=== PATIENT | male | born 1960 | race Caucasian/White ===

== ENCOUNTER 2019-07-26 07:55 | Inpatient (IN) ==
--- NOTE | 2019-07-12 16:26 | PAT Medication Instructions ---
Medication Instructions Date of Service July 12, 2019 Home Medications folic acid 1 mg PO QPM hydrochlorothiazide 12.5 mg PO QPM levothyroxine 75 mcg PO QAM methotrexate sodium 15 mg PO WK naproxen sodium [Aleve] 440 mg PO Q8H PRN triamcinolone acetonide 1 applic TOPICAL TID PRN ASK your surgeon for instructions naproxen sodium [Aleve] 440 mg PO Q8H PRN ASK your prescriber and surgeon methotrexate sodium 15 mg PO WK STOP taking 24 hours before surgery triamcinolone acetonide 1 applic TOPICAL TID PRN Take morning of surgery levothyroxine 75 mcg PO QAM Take evening before surgery folic acid 1 mg PO QPM hydrochlorothiazide 12.5 mg PO QPM Other Notes If you have any questions please call us at [phone] or [phone] or [phone] or [phone]
--- NOTE | 2019-07-13 11:54 | Anesthesiology Consultation ---
Date of Service July 13, 2019 Assessment & Plan (1) Encounter for pre-operative examination: Chart Review Chart Review: Acceptable Risk for Surgery (pending review of preop testing (labs, EKG, CXR)) and Patient seen in Pre Admission Testing Teaching & Discussion Pre-Anesthesia Teaching/Discussion Notes: Instructed NPO after midnight before surgery,except medications with 15 cc of water. Medication instructions provided according to the PAT guidelines. History Surgery Operation Date: 07/26/19 07:30 Proposed Procedures p Robotic Assisted Laparoscopic Radical Retropubic Prostatectomy, Possible Open, Possible Pelvic Lymph Node Dissection, Possible Suprapubic Tube Placement - Glenn Graham MD Height/Weight Height: 5 ft 7 in Weight: 62.5 kg Allergies Allergy/AdvReac Type Severity Reaction Status Date / Time No Known Allergies Allergy Verified 07/13/19 10:27 Medications Home Medications Medication Instructions Recorded Confirmed Last Taken folic acid 1 mg PO QPM 07/06/19 07/13/19 Unknown hydrochlorothiazide 12.5 mg PO QPM 07/06/19 07/13/19 Unknown levothyroxine 75 mcg PO QAM 07/06/19 07/13/19 Unknown methotrexate sodium 15 mg PO WK 07/06/19 07/13/19 Unknown naproxen sodium [Aleve] 440 mg PO Q8H PRN 07/06/19 07/13/19 Unknown triamcinolone acetonide 1 applic TOPICAL TID PRN 07/06/19 07/13/19 Unknown Past Medical History Medical History Cancer prostate Gout Hypothyroidism Scleroderma issues with stiffness with arms/hands (PCP monitoring) Exercise / Class Metabolic Activity II 4-5 Yardwork/Stairs/Walk up hill Past Family History Family History Mother Family history of diabetes mellitus Past Surgical History Surgical History History of knee surgery RIGHT S/P INJURY (1970'S) Past Anesthesia History No Hx of Anesthesia Complications and No Family Hx of Anesthesia Complications History of PONV No Hx of PONV and No Hx of Motion Sickness Social History Smoking Status: Light tobacco smoker tobacco type: cigars and smokeless tobacco Smoking cigarettes per day: occasional cigar Do You Dip or Chew Tobacco: Yes (1/3- 1/4 cans/day- advised NPO AM DOS) Hx Alcohol Use: Yes Alcohol type: hard liquor alcohol intake frequency: a few times a week Hx Substance Use: Yes substance use type: marijuana Last Used Substance Other:: inhaled marijuana (no card) 2-3x day Review of Systems Patient denies chest pain, shortness of breath, dyspnea on exertion, reflux, cough, wheezing, palpitations. Physical Exam Vital Signs VITALS BP 146/84 P 71 TEMP 98.7 SP02 95%RA RESP 18 PHYSICAL Full neck and c-spine range of motion. Full TMJ range of motion. TMD 3 finger breaths Mallampati Score 2 Dentition: poor dentition, rotted, upper front missing Lungs: clear throughout to auscultation Cardiac: regular rate and rhythm, no murmurs noted Spine: normal Carotid arteries: negative bruit Extremities: no edema Large tran- advised patient recommendation to trim prior to surgery. Patient refused but agreeable to "clean up" area surrounding face. Advised patient potential for cancellation AM DOS depending on anesthesiologist evaluation/decision. He states he will leave decision up to anesthesiologist AM DOS with whether or not he needs to trim/cut tran. Testing Echocardiogram Date: 01/19/17 EF 55-60%. Grade I DD. No significant valvular disease.
--- NOTE | 2019-07-13 12:59 | XRay Report ---
XR chest Pre-admission PA/Lat CLINICAL HISTORY: pat COMPARISON STUDY: No previous studies for comparison. FINDINGS: The bones soft tissues and hemidiaphragms are normal. The cardiomediastinal silhouette is n ormal. The lungs are clear. The pulmonary vasculature is normal. IMPRESSION: Negative chest. The above report was generated using voice recognition software. It may contain grammatical, syntax or spelling errors. Electronically signed by: Cody Wilkes M.D. 07/13/2019 12:58 PM
[2019-07-13 13:12] LABS: Appearance Urine Clear (Clear); Bilirubin Urine Negative (Negative); Blood Urine Negative (Negative); Color Urine Yellow; Glucose Urine UA Negative (Negative); Ketones Urine Negative (Negative); Leukocyte Esterase Urine Negative (Negative); Nitrite Urine Negative (Negative); Protein Urine Negative (Negative); Specific Gravity Urine 1.015 (1.000-1.030); Urobilinogen Urine Negative (Negative)
[2019-07-13 13:12] LABS: Basophils # (auto) 0.03 K/uL (0-0.2); Basophils % (auto) 0.3 %; Eosinophils # (auto) 0.13 K/uL (0-0.5); Eosinophils % (auto) 1.2 %; Hematocrit (blood only) 40.6 % (42-52); Hemoglobin 13.7 g/dL (14.0-18.0); Immature Granulocytes # (auto) 0.04 K/uL (0.00-0.02); Immature Granulocytes % (auto) 0.4 %; Lymphocytes # (auto) 1.61 K/uL (1.2-3.4); Lymphocytes % (auto) 15.1 %; Mean Corpuscular Hemoglobin 31.3 pg (25-34); Mean Corpuscular Hgb Conc 33.7 g/dL (32-36); Mean Corpuscular Volume 92.7 fL (80-100); Mean Platelet Volume 10.9 fL (7.4-10.4); Monocytes # (auto) 1.02 K/uL (0.11-0.59); Monocytes % (auto) 9.6 %; Neutrophils # (auto) 7.85 K/uL (1.4-6.5); Neutrophils % (auto) 73.4 %; Platelet Count 272 K/uL (130-400); RDW Coefficient of Variation 15.6 % (11.5-14.5); RDW Standard Deviation 52.5 fL (36.4-46.3); Red Blood Count 4.38 M/uL (4.7-6.1); White Blood Count 10.68 K/uL (4.8-10.8)
[2019-07-13 13:21] LABS: BUN Creatinine Ratio 19.3 (10-20); Calcium 8.7 mg/dl (8.5-10.1); Creatinine Clr Calc Pharmacy 90.1 ml/min; Est GFR (African American) 114.7
[~2019-07-26 07:55] MED LIST: CEFAZOLIN 2000MG 2,000 MG/15 ML SYR IV SCH; HEPARIN SOD 5,000 UNIT/0.5 ML VIAL SQ SCH; LR 15ML/HR IV SCH
[2019-07-26] MEDS ORDERED: MIDAZOLAM HCL 1 MG/ML 2ML VIAL ONE (08:54)
[2019-07-26] MEDS ORDERED: fentaNYL citrate 100 MCG/2 ML VIAL ONE (08:55)
[2019-07-26] MEDS ORDERED: ROCURONIUM BROMIDE 10 MG/ML 5 ML VIAL ONE ×2 (08:56→11:29)
[2019-07-26] MEDS ORDERED: GLYCOPYRROLATE 0.2 MG/ML VIAL ONE (08:56)
[2019-07-26] MEDS ORDERED: PROPOFOL IV EMULSION 10 MG/ML 20 ML VIAL IV ONE (08:56)
[2019-07-26] MEDS ORDERED: LARYING-O-JET KIT (LTA) ONE (08:56)
[2019-07-26] MEDS ORDERED: LIDOCAINE HCL 2% 2 ML VIAL/AMP(20MG/ML) INFIL ONE (08:56)
[2019-07-26] MEDS ORDERED: HYDROmorphone INJ 2 MG/ML SYR/VIAL IV PRN (09:03)
[2019-07-26] MEDS ORDERED: ePHEDrine sulfate 50 MG/ML AMP IV PRN (09:03)
[2019-07-26] MEDS ORDERED: ATROPINE SULFATE 0.1 MG/ML 10ML SYR IV PRN (09:03)
--- NOTE | 2019-07-26 09:16 | History & Physical Bridge Note ---
Date of Service July 26, 2019 History & Physical Bridge Note I have examined the patient, reviewed the History & Physical and in the interval since the performance of the History & Physical I have noted the following changes of clinical significance: no changes noted
[2019-07-26] MEDS ORDERED: BUPIVACAINE 0.5 % 5 MG/1 ML MPF 30ML VIAL ONE (09:25)
[2019-07-26] MEDS ORDERED: BELLADONNA/OPIUM SUPP 60 MG SUPP PR PRN (10:32)
[2019-07-26] MEDS ORDERED: BELLADONNA/OPIUM SUPP 60 MG SUPP PR ONE (10:41)
[2019-07-26] MEDS ORDERED: ePHEDrine sulfate 50 MG/ML SYR ONE (11:20)
[2019-07-26] MEDS ORDERED: PHENYLEPHRINE 100MCG/ML 5ML SYR ONE (11:20)
[2019-07-26] MEDS ORDERED: HYDROmorphone INJ 2 MG/ML SYR/VIAL ONE (11:20)
[2019-07-26] MEDS ORDERED: ONDANSETRON INJ 2 MG/ML 2 ML VIAL ONE (11:20)
[2019-07-26] MEDS ORDERED: DEXAMETHASONE SOD INJ 4 MG/ML VIAL ONE (11:20)
[2019-07-26] MEDS ORDERED: NEOSTIGMINE METHYLSULFATE 5 MG/5 ML SYR ONE (11:20)
[2019-07-26] MEDS ORDERED: FLOSEAL HEMOSTATIC MATRIX 10ML TOP ONE (13:13)
[2019-07-26] MEDS ORDERED: LABETALOL HCL IV 5 MG/ML 20ML IV ONE (13:13)
--- NOTE | 2019-07-26 14:15 | Operative Report ---
Post Operative Report Pre & Post Diagnosis Operation Date: 07/26/19 09:35 Pre-Op Diagnosis: Prostate Cancer Post-Op Diagnosis: Prostate Cancer Procedure Operation Date: 07/26/19 09:35 Actual Procedures p Robotic Assisted Laparoscopic Radical Retropubic Prostatectomy with bilateral pelvic lymph node dissection(Not Applicable) - Glenn Graham MD Surgeon Carroll Graham MD Petrology Teacher Dorita Claudio Estimated Blood Loss 75 Findings Consistent with Post-Op Diagnosis Specimens 1. periprostatic fat 2. left pelvic lymph nodes 3. right pelvic lymph nodes 4. prostate and seminal vesicles Description of Procedure The patient was identified in the preoperative holding area, appropriate informed consents were reviewed and completed, and he was transported to the operating suite. Subcutaneous heparin was administered in the pre-operative holding area. Upon arrival in the operating suite, he received appropriate antibiotics and general anesthesia. He was positioned in dorsal lithotomy, a B&O suppository was inserted after digital rectal exam, and he was prepped and draped in standard fashion. A Steve catheter was inserted in the sterile field. A Veress needle was passed per umbilicus with uniform insufflation of the abdomen to 15mmHg. He was placed in steep Trendelenburg position. A periumbilical incision was then made to accommodate a 12mm Visiport with 10mm 0degree laparoscope. Inspection of the abdomen was carried out, and there was no evidence of traumatic entry or injury secondary to the Veress needle. After confirming a clear anterior abdominal wall, ports were subsequently placed in standard robotic prostatectomy fashion without incident. To begin the robotic portion of the case, the left lateral aspect of the sigmoid was mobilized off of the left pelvic side wall to allow the pouch of Solitario to be appropriately visualized. I then made an incision in the pouch of Solitario, overlying the seminal vesicles. Both SVs as well as the ampullae of the vasa were entirely dissected, with the vasa transected 3cm from the prostate. The medial umbilical ligaments were then controlled with bipolar electrocautery just inferior to the umbilicus. Following cauterization, they were divided utilizing monopolar cautery. A peritoneal incision was carried from this location to the medial aspect of the internal inguinal rings bilaterally with care to avoid opening through the ring. This incision was concluded when the vas deferens was reached. Dissection of the bladder and prostate off of the posterior aspect of the pubic arch was completed allowing full visualization of the prostate. The fat overlying the prostate was removed en bloc and passed off the table as a specimen labeled "periprostatic fat". The endopelvic fascia was cleared during this portion of the procedure, and subsequently opened - first on the right and then the left. The incision through the endopelvic fascia began near the prostate-bladder junction and was carried to the apex with extreme care to preserve all lateral levator musculature as well as the periurethral musculature and sphincter complex. The puboprostatic ligaments were thinned slightly bilaterally before placing a 0-Vicryl figure of 8 stitch around the DVC. The lymph node dissection was then conducted. External iliac vessels were identified on the pelvic side wall. The packet of fat and lymphatic tissue that resides just under the iliac vein was elevated and off of the vein with a split and roll technique. The packet was dissected laterally to the circumflex vein and distally to the obturator nerve which was preserved. The proximal aspect of the packet was carried towards the bifurcation of the iliac vessels. A combination of monopolar and bipolar cautery were used to assist with control. Clips were placed at the proximal and distal aspects of the packet prior to transection. After completing the dissection on both sides, the packets were collected and passed off of the table as specimens labeled "pelvic lymph nodes". My attention then returned to the prostate, with identification of the bladder neck aided by gentle traction on the Steve catheter and lateral to medial pressure at the presumed level of the bladder neck with the robotic instruments. An anterior cystotomy was made, the Steve balloon deflated and the catheter guided through the incision to allow anterior retraction. I attempted to preserve maximal bladder neck musculature as I circumferentially dissected around the bladder neck. After incision through the posterior aspect of the mucosa, the dissection was carried through detrusor muscle until the bilateral ampullae of the vasa were identified. The previously dissected vasa and SVs were brought through the incision and used to elevated the prostate anteriorly. A posterior plane behind the prostate was then developed - splitting Denonvilliers's fascia. This dissection was carried as far as possible towards the apex as well as far as possible laterally. An incision in the lateral prostatic fascia was then made bilaterally to facilitate control of the vascular pedicles. The pedicles were each controlled with a series of Weck clips. The neurovascular bundles were identified with an aggressive nerve sparing on the left and a cautious/wide approach on the right. The apical attachments of the prostate were remaining at that stage. The DVC was divided with bipolar electrocautery. Mamta-prostatic tissue incised with sharp dissection and monopolar cautery. Maximal urethral length was preserved before dividing the urethra sharply. The prostate was entirely freed at that point, and collected in an EndoCatch bag before being moved out of the field of vision. Hemostasis was confirmed and anastomosis of the bladder and urethra was completed utilizing a double armed V- Lock stitch. A new Steve catheter was inserted and the anastomosis tested with irrigation. There was no evidence of leak. FloSeal coagulant was placed around the anastomosis. A "Rufino" style stitch was placed to alana peritoneum against the areas of the lymph node dissection to prevent lymphocele formation. The robot was undocked, the specimen extracted through expansion of the mamta- umbilical camera port. The fascia was closed with a series of 0-PDS figure of 8 stitches. The right medical record assistant port was closed in two layers - with a figure of 8 0-Vicryl to reapproximate the fascia followed by 4-0 Monocryl to close the skin. Monocryl was used to close all other skin incisions. All wounds were dressed with Dermabond. The case was concluded and the patient taken to the PACU in stable condition. Dorita Claudio assisted from opening to closure. I attest to the content of the Intraoperative Record and any orders documented therein. Any exceptions are noted below.
[2019-07-26 14:27] LABS: Basophils # (auto) 0.01 K/uL (0-0.2); Basophils % (auto) 0.1 %; Eosinophils # (auto) 0.12 K/uL (0-0.5); Eosinophils % (auto) 0.8 %; Hematocrit (blood only) 38.5 % (42-52); Hemoglobin 12.4 g/dL (14.0-18.0); Immature Granulocytes # (auto) 0.16 K/uL (0.00-0.02); Lymphocytes # (auto) 1.22 K/uL (1.2-3.4); Lymphocytes % (auto) 7.8 %; Mean Corpuscular Hemoglobin 31.1 pg (25-34); Mean Corpuscular Volume 96.5 fL (80-100); Mean Platelet Volume 9.7 fL (7.4-10.4); Monocytes # (auto) 0.51 K/uL (0.11-0.59); Monocytes % (auto) 3.3 %; Neutrophils # (auto) 13.55 K/uL (1.4-6.5); Platelet Count 330 K/uL (130-400); RDW Coefficient of Variation 15.5 % (11.5-14.5); RDW Standard Deviation 53.1 fL (36.4-46.3); Red Blood Count 3.99 M/uL (4.7-6.1); White Blood Count 15.57 K/uL (4.8-10.8)
[2019-07-26 14:33] LABS: Mean Corpuscular Hgb Conc 32.2 g/dL (32-36)
[2019-07-26 14:43] LABS: Calcium 8.4 mg/dl (8.5-10.1); Creatinine Clr Calc Pharmacy 77.7 ml/min; Est GFR (African American) 109.2; Est GFR (Non-African American) 94.3; Potassium 3.9 mmol/L (3.5-5.1)
[2019-07-26] MEDS ORDERED: MoRPHine SULFATE 10 MG/ML CARP/VIAL IV PRN (15:50)
[2019-07-26] MEDS ORDERED: OXYCODONE HCL IR 5 MG TAB (IMMEDIATE RELEASE) PO PRN ×2 (15:50)
[2019-07-26] MEDS ORDERED: ONDANSETRON INJ 2 MG/ML 2 ML VIAL IV PRN (15:50)
[2019-07-26] MEDS ORDERED: MoRPHine SULFATE 4 MG/ML 1 ML CARP\\VIAL IV PRN (15:50)
[2019-07-26] MEDS ORDERED: predniSONE 20 MG TAB PO STA (15:59)
--- NOTE | 2019-07-26 16:48 | Anesthesiology Progress Note ---
Date of Service July 26, 2019 Anesthesia Post Procedure Vital Signs Vital Signs: Temp Pulse Pulse Resp BP Pulse Ox 07/26/19 16:18 36.8 C 48 L 16 106/67 97 07/26/19 15:51 36.5 C 48 L 14 113/68 98 07/26/19 15:30 36.3 C L 57 L 16 114/63 93 07/26/19 15:20 50 L 16 114/66 96 07/26/19 15:10 47 L 16 117/68 95 07/26/19 15:00 53 L 16 115/72 95 07/26/19 14:50 48 L 16 118/72 95 07/26/19 14:40 36.3 C L 52 L 16 124/82 96 07/26/19 14:30 50 L 16 128/77 98 07/26/19 14:20 52 L 16 138/82 100 07/26/19 14:10 54 L 16 138/88 100 07/26/19 14:00 36.3 C L 64 16 141/95 H 100 07/26/19 08:16 36.6 C 82 20 154/73 H 100 Transfer of Care Handoff Completed per policy Notes Mental Status: alert / awake / arousable Patient Amnestic to Procedure: Yes Nausea / Vomiting: adequately controlled Pain: adequately controlled Airway Patency, RR, SpO2: stable & adequate BP & HR: stable & adequate Hydration State: stable & adequate Anesthetic Complications: no major complications apparent and Pt Satisfied with anesthetic care
[2019-07-26] MEDS: ACETAMINOPHEN 65 ML IV SCH (17:20)
[2019-07-26] MEDS: CEFAZOLIN 2000MG 2,000 MG/15 ML SYR IV SCH (19:28)
[2019-07-26] MEDS: HEPARIN SOD 5,000 UNIT/0.5 ML VIAL SQ SCH (20:23)
[2019-07-26] MEDS: FOLIC ACID 1 MG TAB PO SCH (20:23)
[2019-07-27] MEDS: LACTATED RINGER'S 1,000 ML IV SCH ×2 (02:07→08:30)
[2019-07-27] MEDS: ACETAMINOPHEN 65 ML IV SCH ×3 (02:08→17:26)
[2019-07-27] MEDS: CEFAZOLIN 2000MG 2,000 MG/15 ML SYR IV SCH (04:32)
[2019-07-27 05:55] LABS: Basophils # (auto) 0.01 K/uL (0-0.2); Basophils % (auto) 0.1 %; Eosinophils # (auto) 0.01 K/uL (0-0.5); Eosinophils % (auto) 0.1 %; Hematocrit (blood only) 36.3 % (42-52); Hemoglobin 11.7 g/dL (14.0-18.0); Immature Granulocytes % (auto) 0.7 %; Lymphocytes # (auto) 1.12 K/uL (1.2-3.4); Lymphocytes % (auto) 7.7 %; Mean Corpuscular Hemoglobin 30.7 pg (25-34); Mean Corpuscular Hgb Conc 32.2 g/dL (32-36); Mean Corpuscular Volume 95.3 fL (80-100); Mean Platelet Volume 10.1 fL (7.4-10.4); Monocytes # (auto) 1.34 K/uL (0.11-0.59); Monocytes % (auto) 9.2 %; Neutrophils # (auto) 11.99 K/uL (1.4-6.5); Neutrophils % (auto) 82.2 %; Platelet Count 303 K/uL (130-400); RDW Coefficient of Variation 15.7 % (11.5-14.5); RDW Standard Deviation 53.8 fL (36.4-46.3); Red Blood Count 3.81 M/uL (4.7-6.1); White Blood Count 14.57 K/uL (4.8-10.8)
[2019-07-27] MEDS: LEVOTHYROXINE SODIUM 75 MCG TABLET PO SCH (05:58)
[2019-07-27 06:38] LABS: BUN Creatinine Ratio 15.6 (10-20); Creatinine Clr Calc Pharmacy 92.2 ml/min; Est GFR (African American) 117.2; Est GFR (Non-African American) 101.1; Potassium 4.4 mmol/L (3.5-5.1)
--- NOTE | 2019-07-27 07:47 | Urology Progress Note ---
Date of Service July 27, 2019 Assessment & Plan (1) Prostate cancer: POD #1 s/p RALP w/ LND - doing well -advance diet - HL IVF - ambulate Subjective progressing appropriately ambulated tolerating clears no narcotic use Physical Exam Physical Exam: incisions appropriate no bruising, no erythema urine clear Results & Data Vital Signs (Past 12 Hours) Vital Signs Temp Pulse Resp BP Pulse Ox 07/27/19 03:34 36.8 C 62 18 94/62 L 98 07/26/19 23:48 36.6 C 52 L 18 119/73 99 PG Care Time/CCT Total # of Minutes Spent Total Time Spent with Patient: Total time spent is greater than 50% in coordination of care (as documented) at patient's floor/unit and/or counseling patient:
[2019-07-27] MEDS: HEPARIN SOD 5,000 UNIT/0.5 ML VIAL SQ SCH ×2 (09:34→20:49)
--- NOTE | 2019-07-27 11:11 | Urology Progress Note ---
Date of Service July 27, 2019 Assessment & Plan (1) Prostate cancer: POD #1 s/p RALP w/ LND Continues to progress very well. Tolerated regular tray for breakfast without issue. Ambulating in halls independently. Clinically ready for discharge, working on transportation as pt lives >1 hour away. If able to coordinate, okay to discharge today. Expected clinical course reviewed. Otherwise, okay to stay overnight and will discharge in AM. Subjective POD #1 s/p RALP w/ LND Re-evaluated for progress update. Pt continues to progress very well. He tolerated regular breakfast without issue. I walked with patient in hallway which he did very well with. With minimal soreness at incision sites, to be expected. Still has not required narcotic pain control. No flatus yet but feels it's coming soon. Review of Systems Review of Systems: All systems reviewed & are unremarkable except as noted in HPI & below Physical Exam Physical Exam: A&Ox3 RRR Incisions c/d/i hayden draining clear yellow. Results & Data Vital Signs (Past 12 Hours) Vital Signs Temp Pulse Pulse Resp BP Pulse Ox 07/27/19 08:00 36.5 C 62 17 117/74 98 07/27/19 03:34 36.8 C 62 18 94/62 L 98 07/26/19 23:48 36.6 C 52 L 18 119/73 99
[2019-07-27] MEDS ORDERED: predniSONE 10 MG TABLET PO ONE (12:00)
--- NOTE | 2019-07-27 12:23 | Anesthesiology Progress Note ---
Date of Service July 27, 2019 Anesthesia Post Procedure Vital Signs Vital Signs: Temp Pulse Pulse Pulse Resp BP Pulse Ox 07/27/19 08:00 36.5 C 62 17 117/74 98 07/27/19 03:34 36.8 C 62 18 94/62 L 98 07/26/19 23:48 36.6 C 52 L 18 119/73 99 07/26/19 19:20 57 L 12 106/65 98 07/26/19 18:26 36.0 C L 64 16 115/77 98 07/26/19 16:47 36.4 C L 52 L 20 104/68 93 07/26/19 16:18 36.8 C 48 L 16 106/67 97 07/26/19 15:51 36.5 C 48 L 14 113/68 98 07/26/19 15:30 36.3 C L 57 L 16 114/63 93 07/26/19 15:20 50 L 16 114/66 96 07/26/19 15:10 47 L 16 117/68 95 07/26/19 15:00 53 L 16 115/72 95 07/26/19 14:50 48 L 16 118/72 95 07/26/19 14:40 36.3 C L 52 L 16 124/82 96 07/26/19 14:30 50 L 16 128/77 98 07/26/19 14:20 52 L 16 138/82 100 07/26/19 14:10 54 L 16 138/88 100 07/26/19 14:00 36.3 C L 64 16 141/95 H 100 Notes Mental Status: alert / awake / arousable and participated in evaluation Nausea / Vomiting: adequately controlled Pain: adequately controlled Airway Patency, RR, SpO2: stable & adequate BP & HR: stable & adequate Hydration State: stable & adequate
[2019-07-27] MEDS ORDERED: hydroCHLOROthiazide 25 MG TAB PO SCH (13:00)
[2019-07-27] MEDS: FOLIC ACID 1 MG TAB PO SCH (20:48)
[2019-07-28] MEDS: ACETAMINOPHEN 65 ML IV SCH (01:49)
[2019-07-28] MEDS: LEVOTHYROXINE SODIUM 75 MCG TABLET PO SCH (05:47)
[2019-07-28 07:14] LABS: Basophils # (auto) 0.01 K/uL (0-0.2); Basophils % (auto) 0.1 %; Eosinophils # (auto) 0.09 K/uL (0-0.5); Eosinophils % (auto) 0.8 %; Hematocrit (blood only) 36.7 % (42-52); Hemoglobin 11.9 g/dL (14.0-18.0); Immature Granulocytes # (auto) 0.05 K/uL (0.00-0.02); Immature Granulocytes % (auto) 0.5 %; Lymphocytes # (auto) 1.59 K/uL (1.2-3.4); Lymphocytes % (auto) 14.6 %; Mean Corpuscular Hemoglobin 30.6 pg (25-34); Mean Corpuscular Hgb Conc 32.4 g/dL (32-36); Mean Corpuscular Volume 94.3 fL (80-100); Mean Platelet Volume 10.2 fL (7.4-10.4); Monocytes # (auto) 1.27 K/uL (0.11-0.59); Monocytes % (auto) 11.6 %; Neutrophils % (auto) 72.4 %; Platelet Count 283 K/uL (130-400); RDW Standard Deviation 54.6 fL (36.4-46.3); Red Blood Count 3.89 M/uL (4.7-6.1); White Blood Count 10.91 K/uL (4.8-10.8)
--- NOTE | 2019-07-28 07:47 | Urology Progress Note ---
Date of Service July 28, 2019 Assessment & Plan (1) Prostate cancer: POD #2 s/p RALP w/ LND Pt continues to do very well. Tolerating PO, VSS, labs wnl. Okay to discharge home today with hayden catheter intact. Expected clinical course reviewed. Subjective POD #2 s/p RALP w/ LND Pt continues to progress very well. No issues overnight. Tolerating diet without issue. pain controlled with IV tylenol. Review of Systems Review of Systems: Constitutional: Denies fever, chills, sweats, malaise Eyes: Denies problem reported ENMT: Denies dizziness Resp: Denies cough, Denies shortness of breath CV: Denies JVD GI: Denies nausea/vomiting : Denies suprapubic or flank pain, dysuria, urgency, frequency, hematuria MS: Denies swelling, stiffness Integ: Denies rash, erythema Neuro: Denies falls, weakness Psych: Denies behavior change Endo: Denies polyphagia, polydipsia Heme: Denies easy bleeding Physical Exam Constitutional: no acute distress and not ill appearing Eyes: no nystagmus ENMT: Ears: no hearing impairment Neck: trachea midline Respiratory: no respiratory distress and no cough Cardiovascular: Vessels: no JVD Chest (Breasts): Chest: normal inspection of chest Gastrointestinal (Abdomen): Inspection/Auscultation: abdomen not distended and no abdominal edema Percussion/Palpation: abdomen soft; abdomen nontender Musculoskeletal: Head/Neck/Chest: normocephalic and head atraumatic Skin: no rashes, warm and dry incisions c/d/i Neurologic: awake; not confused and not obtunded Psychiatric: Orientation: alert and oriented x 3 Eye Contact: good eye contact Affect: no depressed affect Genitourinary: bladder normal to inspection; no CVA tenderness Lymphatic: no lymphadenopathy and no lymphedema Results & Data Vital Signs (Past 12 Hours) Vital Signs Temp Pulse Resp BP Pulse Ox 07/28/19 07:15 37.0 C 57 L 15 132/79 98 07/27/19 23:23 36.7 C 60 18 133/77 98
[2019-07-28 07:48] LABS: BUN Creatinine Ratio 13.9 (10-20); Calcium 8.7 mg/dl (8.5-10.1); Creatinine Clr Calc Pharmacy 84.3 ml/min; Est GFR (Non-African American) 97.5; Potassium 4.2 mmol/L (3.5-5.1)
[2019-07-28] MEDS: HEPARIN SOD 5,000 UNIT/0.5 ML VIAL SQ SCH (08:40)
--- NOTE | 2019-07-30 12:07 | Discharge Summary ---
Date of Service July 30, 2019 Principal Diagnosis prostate cancer Discharge Data Allergies Allergy/AdvReac Type Severity Reaction Status Date / Time No Known Allergies Allergy Verified 07/26/19 08:13 Procedures Performed Operation Date: 07/26/19 09:35 Actual Procedures p Robotic Assisted Laparoscopic Radical Retropubic Prostatectomy with bilateral pelvic lymph node dissection(Not Applicable) - Glenn Graham MD Hospital Course (1) Prostate cancer: Patient admitted for a robotic prostatectomy - details of the procedure as dictated previously in my operative report - in summary, he tolerated the procedure very well - he was in stable condition overnight with appropriate urine output and stable labs - he was subsequently discharged home with a hayden catheter - he was in stable condition at the time of discharge Total Time Total Time Spent Total Time Spent (In Minutes): 25 Discharge Plan Discharge Items Patient Disposition: Home - Self-Care Reason For Visit: Prostate Cancer Discharge Diagnosis: prostate cancer Activity: Resume your previous activity Activity Comment: walking and stairs in your home are okay Lifting: No more than 10 pounds Bathing: Keep incision dry Bathing Comment: Okay to shower tomorrow. No tub baths/swimming until followup. Sexual Activity: Wait until after follow-up appointment Exercise/Sports: Wait until after follow-up appointment Non-emergency contact: Urologist Call non-emergency contact if: your symptoms worsen, your pain is not controlled, your pain is unusual for you, your temperature is above 101, your wound has increased redness, your wound has increased drainage and your wound pain has increased Follow-up/Referrals: Glenn Graham MD [Physician] - 08/10/19 2:10 pm Kyle Estrada M.D. [Primary Care Provider] - Urology,Nurse [Physician] - 08/02/19 11:15 am (catheter removal) Diet: Regular Addtl Attending Provider Instructions: Please take all medications as prescribed and keep all follow-ups as scheduled. Please call our office at [phone] with any questions, concerns or need to reschedule appointments for any reason. We are happy to assist you. We have sent an antibiotic to your pharmacy of choice. Please begin antibiotic as prescribed the day BEFORE your scheduled voiding trial at [facility]. Please continue antibiotic every 12 hours through the day AFTER your voiding trial. Activity: We recommend having someone with you for the first few days after surgery to help care for you. For the first 2 weeks after surgery, we would like you to get up and walk around your house. However, we recommend limit physical activity that would increase your heart rate. This will allow your body to rest and heal. Take naps if you feel tired. Don't lift anything heavier than 10 pounds, mow the law or ride a bicycle until your follow-up appointment. Please avoid long car rides. Home Care: Unless directed otherwise, drink 6 to 8 glasses of water a day (enough to keep your urine light colored). This will also help keep a healthy flow of urine. We recommend using a stool softener for the first two weeks to avoid constipation. Hayden Catheter Care: Keep the catheter well secured with either a leg back or leg strap with large bag. Empty your bag when it's about half full. You may notice some blood in the bag. This is normal after surgery and while the catheter is in place. Use mild soap (such as Dove or Dial) and water to wash the catheter and the head of your penis daily, or more frequently if needed. Return to your normal diet, we encourage good protein intake to promote healing. You may shower as normal. Please avoid tub baths or soaking until catheter removed and incisions well healed. Wearing sweat pants while you have the catheter is recommended, they will be more comfortable. Follow-up Your follow up appointments for having your catheter removed, and follow up with your physician should already be scheduled. If you have any questions regarding this, please contact our office. Your final pathology report will be discussed at your physician follow-up appointment. Call [facility] at [phone] right away if you have any of the following: Chest pain or trouble breathing (call [phone] or go to the hospital) Fever of 101F or higher, uncontrolled vomiting Heavy bleeding, clots, or bright red blood from the catheter Catheter that falls out or stops draining Foul-smelling discharge from your catheter Redness, swelling, warmth, or increased pain at your incision site Drainage, pus, or bleeding from your incision Addtl Sericulture Teacher Provider Instructions: n/a Pending Studies at Discharge: Yes (pathology) Stand-Alone Forms: [facility], Opioid Pain Management Medications and DC Order Prescriptions: New tramadol 50 mg tablet 50 mg PO TID PRN (Reason: pain) Qty: 14 RF: 0 docusate sodium [Colace] 100 mg capsule 100 mg PO BID Qty: 60 RF: 0 Continued triamcinolone acetonide 0.1 % Cream 1 applic TOPICAL TID PRN (Reason: Rash) RF: 0 methotrexate sodium 2.5 mg Tablet 15 mg PO WK RF: 0 folic acid 1 mg Tablet 1 mg PO QPM RF: 0 hydrochlorothiazide 12.5 mg Tablet 12.5 mg PO QPM RF: 0 levothyroxine 75 mcg Capsule 75 mcg PO QAM RF: 0 naproxen sodium [Aleve] 220 mg Capsule 440 mg PO Q8H PRN (Reason: Pain) RF: 0 Changed prednisone 10 mg Tablets,Dose Pack 10 mg PO DIRECTED Qty: 0 RF: 0 Discharge Orders: Discharge Order (Routine); Ordered 07/28/19 Ordered By: Dorita Goode/Other Patient Handouts: Catheter Indwelling Urinary Dc, Leg Bag Care Dc Admission Data Admit Date/Time: 07/26/19 14:02 Attending Provider: Glenn Graham Admit Provider: Glenn Graham Primary Care Provider: Kyle Estrada Other Interventions: Discharge Summary Assessment (RN) Last Done: 07/28/19 09:22 DC Date/Time DO NOT enter until pt leaves facility: 07/28/19 10:15
== END 2019-07-28 10:15 | disposition home or self-care (01) | DRG 708 ==
LOC: ASU 07:55 → 3N 14:02
DX: C61 Malignant neoplasm of prostate